=== PATIENT | female | born 1960 | race Caucasian/White ===

== ENCOUNTER 2018-10-17 12:52 | Emergency (ER) | payer OTHER ==
[2018-10-17 13:30] VITALS: BP 109/58
--- NOTE | 2018-10-17 13:42 | UC ---
Eye Complaint HPI - HPI Summary HPI Summary: landon has a style that is growing in size and not responding to warm compresses - History of Current Complaint Chief Complaint: UCEye Stated Complaint: LT EYE IRRITTATING Time Seen by Provider: 10/17/18 13:37 Hx Obtained From: Patient ?: No Onset/Duration: Sudden Onset, Lasting Days Timing: Constant Severity Initially: Mild Severity Currently: Moderate Pain Intensity: 0 Location of Injury: Eye Lid (upper) Aggravating Factor(s): Blinking - Allergies/Home Medications Allergies/Adverse Reactions: Allergies Allergy/AdvReac Type Severity Reaction Status Date / Time No Known Allergies Allergy Verified 10/17/18 13:30 Home Medications: Home Medications Calcium Carb/Vitamin D3/Vit K1 [Calcium + D] 1 chw PO DAILY 10/17/18 [History Confirmed 10/17/18] Levothyroxine TAB* [Synthroid TAB*] 75 mcg PO DAILY 10/17/18 [History Confirmed 10/17/18] PMH/Surg Hx/FS Hx/Imm Hx Previously Healthy: Yes - Surgical History Surgical History: Yes Surgery Procedure, Year, and Place: left knee - Social History Alcohol Use: Occasionally Substance Use Type: None Smoking Status (MU): Never Smoked Tobacco Review of Systems All Other Systems Reviewed And Are Negative: Yes Eyes: Positive: Other - stye Is Patient Immunocompromised?: No Physical Exam Triage Information Reviewed: Yes Appearance: Well-Appearing, Well-Nourished, Pain Distress Vital Signs: Initial Vital Signs Temp 98.6 F 10/17/18 13:26 Pulse 59 10/17/18 13:26 Resp 16 10/17/18 13:26 BP 109/58 10/17/18 13:26 Pulse Ox 100 10/17/18 13:26 Vital Signs Reviewed: Yes Eye Exam: Normal ENT Exam: Normal Dental Exam: Normal Neck exam: Normal Respiratory Exam: Normal Cardiovascular Exam: Normal Abdominal Exam: Normal Bowel Sounds: Positive: Present Musculoskeletal Exam: Normal Neurological Exam: Normal Psychological Exam: Normal Skin Exam: Normal Eye Complaint Course/Dx - Course Course Of Treatment: hx obtained, exam performed ,meds reviewed, treaed for hordeolum of left eye - Differential Dx/Diagnosis Differential Diagnosis/HQI/PQRI: Other - hordeolum vs chalazion Provider Diagnosis: Hordeolum externum (stye) Discharge - Sign-Out/Discharge Documenting (check all that apply): Patient Departure All imaging exams completed and their final reports reviewed: No Studies - Discharge Plan Condition: Stable Disposition: HOME Prescriptions: Sulfamethox/Trimethoprim DS* [Bactrim DS 800/160 TAB*] 1 tab PO BID #14 tab Patient Education Materials: Amparo (ED) Referrals: Chani Howell MD [Primary Care Provider] - Additional Instructions: 1. use the medication as prescribed. 2 Warm compresse to the affected area, twice a day as well. 3. FOllow up if not improving in the next 2 days - Billing Disposition and Condition Condition: STABLE Disposition: Home - Attestation Statements Provider Attestation: I was available for consult. This patient was seen by the ISABEL. The patient was not presented to , seen by or examined by or -Zahra Mott MD
== END 2018-10-17 13:48 | disposition home or self-care (01) ==
LOC: UCEAST 12:52
DX: H00.014 Hordeolum externum left upper eyelid (principal)
CPT/HCPCS: 99202; G0463